=== PATIENT | female | born 1965 | race Caucasian/White ===

== ENCOUNTER 2022-01-11 21:53 | Emergency (ER) | payer MEDICARE, MEDICAID, SELFPAY ==
[2022-01-11 21:56] VITALS: BP 157/97; PULSE 85; RESP 16; TEMP 36.6; O2SAT 98
--- NOTE | 2022-01-11 22:19 | PC.NURSE ---
patient left after being told that she would not be able to have her visitor in the waiting room
== END 2022-01-11 22:19 | disposition left against medical advice (07) ==
DX: K08.89 Other specified disorders of teeth and supporting structures (principal)
CPT/HCPCS: 99199

== ENCOUNTER 2024-10-04 13:46 | Outpatient (CLI) | payer MEDICARE, MEDICAID, SELFPAY ==
--- NOTE | ~2024-10-04 | MR_ITS ---
MRI of the right shoulder Technique: Axial proton-density fat-sat images, coronal proton density fat-sat and T2 fat-sat images, and sagittal T1-weighted and T2 fat-sat images were acquired. Clinical History: Pain Findings: There is mild AC joint degenerative change. Coracoclavicular, coracoacromial, and coracohum eral ligaments are intact. There is moderate to advanced supraspinatus and infraspinatus tendinosis. There is 8mm area of low-gr kami articular surface partial tear at the distal supraspinatus tendon insertion. No high-grade partia l or full-thickness tear of these tendons is seen. Subscapularis tendon intact with mild tendinosis. Tendon of the long head of the biceps is intact with intra-articular tendinosis. Suspected focal superior labral tear. Inferior glenohumeral ligament is intact. There are small glenohumeral joint effusion. No degenerativ e change of the glenohumeral joint. There is minimal fluid in the subacromial/subdeltoid bursa. No mu scle atrophy or edema. Impression: 8 mm low-grade articular surface partial tear of the distal supraspinatus tendon insertion. Backgroun d rotator cuff tendinosis. Suspected subtle superior labral tear. Minimal subacromial/subdeltoid bursitis. Mild AC joint degenerative change. Reviewed, dictated and finalized at [facility]. Impression: 8 mm low-grade articular surface partial tear of the distal supraspinatus tendo n insertion. Background rotator cuff tendinosis. Suspected subtle superior labral tear. Minimal subacromial/subdeltoid bursitis. Mild AC joint degenerative change.
== END 2024-10-04 13:47 | disposition home or self-care (01) ==
LOC: MICIMG 13:49
PROVIDERS: PCP Nurse Practitioner Family; Visit Provider Nurse Practitioner Family
DX: S46.811A Strain of other muscles, fascia and tendons at shoulder and upper arm level, right arm, initial encounter (principal); X58.XXXA Exposure to other specified factors, initial encounter; M19.011 Primary osteoarthritis, right shoulder
CPT/HCPCS: 73221